=== PATIENT | female | born 1990 | race Caucasian/White ===

== ENCOUNTER 2021-09-17 06:43 | Day surgery (SDC) | payer BC ==
[2021-09-17] MEDS ORDERED: Lactated Ringers 1,000 ML IV SCH (07:15)
[2021-09-17] MEDS ORDERED: Ferric Subsulfate Topical Soln 8 GM (8 ML) Bottle ONE (07:19)
[2021-09-17] MEDS ORDERED: Iodine/Potassium Iodide 5% Solution 14 ML Bottle ONE (07:19)
[2021-09-17] MEDS ORDERED: Ondansetron 4 MG/2 ML SDV ONE ×2 (07:24→08:38)
[2021-09-17] MEDS ORDERED: Metoclopramide 10 MG/2 ML SDV ONE (07:24)
[2021-09-17] MEDS ORDERED: Phenylephrine HCl In 0.9% NaCl 1 MG/10 ML Vial ONE (07:24)
[2021-09-17] MEDS ORDERED: Lidocaine 2% 5 ML SDV ONE (07:24)
[2021-09-17] MEDS ORDERED: Glycopyrrolate 0.2 MG/ML SDV ONE (07:24)
[2021-09-17] MEDS ORDERED: Propofol 200 MG/20 ML SDV ONE (07:25)
[2021-09-17] MEDS ORDERED: HYDROmorphone 1 MG/ML Syringe IVPUSH PRN (07:42)
[2021-09-17] MEDS ORDERED: Metoclopramide 10 MG/2 ML SDV IVPUSH PRN (07:42)
[2021-09-17] MEDS ORDERED: Morphine 4 MG/ML VIAL IVPUSH PRN (07:42)
[2021-09-17] MEDS ORDERED: Naloxone 0.4 MG/ML SDV IVPUSH PRN (07:42)
[2021-09-17] MEDS ORDERED: fentaNYL 50 MCG/ML SDV IVPUSH PRN (07:42)
[2021-09-17] MEDS ORDERED: Ondansetron 4 MG/2 ML SDV IVPUSH PRN (07:42)
[2021-09-17] MEDS ORDERED: Albuterol 0.083% 2.5 MG/3 ML Neb Soln NEB PRN (07:42)
[2021-09-17 08:18] LABS: CARBON DIOXIDE,CO2 25.3 mmol/L (21.0-32.0); POTASSIUM,K 3.5 mmol/L (3.5-5.1)
[2021-09-17] MEDS ORDERED: fentaNYL 100 MCG/2 ML SDV ONE (08:18)
[2021-09-17] MEDS ORDERED: Ketorolac 30 MG/ML SDV ONE (08:38)
[2021-09-17] MEDS ORDERED: ePHEDrine 50 MG/ML SDV ONE (08:38)
[2021-09-17] MEDS ORDERED: Acetaminophen/HYDROcodone 325-5 MG Tab PO PRN (09:07)
== END 2021-09-17 09:59 ==
LOC: MW.SDS 06:43
PROVIDERS: ATTEND Obstetrics & Gynecology
DX: N87.0 Mild cervical dysplasia (principal); I10 Essential (primary) hypertension; G47.30 Sleep apnea, unspecified; E66.9 Obesity, unspecified; F41.9 Anxiety disorder, unspecified; Z79.1 Long term (current) use of non-steroidal anti-inflammatories (NSAID); Z90.49 Acquired absence of other specified parts of digestive tract; Z88.7 Allergy status to serum and vaccine; Z98.890 Other specified postprocedural states; Z68.30 Body mass index [BMI] 30.0-30.9, adult; Z87.891 Personal history of nicotine dependence; Z79.899 Other long term (current) drug therapy
CPT/HCPCS: 36415; 57460; 80053; 81025; 85025; 86850; 86900; 86901; A9270; J0131; J1885; J2405; J2704; J3010; J3490; J7120; 00940; J2765

== ENCOUNTER 2023-10-03 07:52 | Emergency (ER) | payer SELFPAY ==
[2023-10-03] MEDS: Acetaminophen 500 MG Tab PO ONE (08:21)
[2023-10-03] MEDS: Ketorolac 30 MG/ML SDV IM ONE (08:22)
[2023-10-03] MEDS: Dexamethasone 4 MG Tab PO ONE (08:22)
== END 2023-10-03 08:54 | disposition home or self-care (01) ==
LOC: MW.ED 07:52
DX: S83.412A Sprain of medial collateral ligament of left knee, initial encounter (principal); I10 Essential (primary) hypertension; E66.9 Obesity, unspecified; Z88.8 Allergy status to other drugs, medicaments and biological substances; Z91.013 Allergy to seafood; Z96.652 Presence of left artificial knee joint; Z75.8 Other problems related to medical facilities and other health care; X50.1XXA Overexertion from prolonged static or awkward postures, initial encounter
CPT/HCPCS: 73562; 96372; 99283; A9270; J1885; J8540